=== PATIENT | female | born 1980 | race Two or more races ===

== ENCOUNTER 2020-09-26 13:33 | Emergency (ER) | payer OTHER ==
[~2020-09-26] VITALS: Ht 154.9 cm; Wt 70.3 kg
== END 2020-09-26 19:00 | disposition home or self-care (01) ==
LOC: ER 13:33
DX: R00.2 Palpitations (principal); I10 Essential (primary) hypertension

== ENCOUNTER 2021-08-10 20:55 | Emergency (ER) | payer OTHER ==
[~2021-08-10] VITALS: Ht 152.4 cm; Wt 61.7 kg
== END 2021-08-11 10:30 | disposition home or self-care (01) ==
LOC: ER 20:55
DX: E87.6 Hypokalemia (principal); R11.11 Vomiting without nausea; R10.9 Unspecified abdominal pain

== ENCOUNTER 2022-10-19 07:49 | Emergency (ER) | payer OTHER ==
[~2022-10-19] VITALS: Ht 154.9 cm; Wt 67.1 kg
[2022-10-19] MEDS ORDERED: ZESTRIL10 M1 PO (08:07)
[2022-10-19] MEDS ORDERED: TOPROL XL25 M1 PO (08:07)
== END 2022-10-19 13:28 ==
LOC: ER 07:49
DX: M54.50 Low back pain, unspecified (principal)

== ENCOUNTER 2024-12-13 04:13 | Emergency (ER) | payer OTHER ==
[~2024-12-13] VITALS: Ht 154.9 cm; Wt 61.2 kg
[~2024-12-13 04:13] MED LIST: TOPROL XL25 M1 PO; ZESTRIL10 M1 PO
[2024-12-13] MEDS ORDERED: GUAIFENESIN 200 MG/10 ML BLIST.PACK PO STA (07:15)
[2024-12-13] MEDS ORDERED: ALBUTEROL SULFATE 3 ML/2.5 MG AMPUL.NEB IH SCH (07:15)
[2024-12-13] MEDS ORDERED: GUAIFENESIN 200 MG/10 ML BLIST.PACK PO ONE (07:40)
[2024-12-13 08:54] LABS: HEMATOCRIT 39.3 % (36.0-45.00); HEMOGLOBIN 13.2 g/dL (12.0-15.00); MEAN CELL VOLUME 91.5 fL (80.00-100.00); MEAN CORPUSCULAR HEMOGLOBIN 30.7 pg (27.00-32.0); MEAN CORPUSCULAR HGB CONC 33.5 g/dl (32.0-36.0); PLATELET COUNT 272 K/uL (150-450); RED BLOOD COUNT 4.29 M/uL (4.00-6.00); RED CELL DISTRIBUTION WIDTH 13.2 % (11.5-14.5)
[2024-12-13] MEDS ORDERED: SINGULAIR10 MG PO (10:28)
[2024-12-13] MEDS ORDERED: PEPCID AC20 MG PO (10:28)
[2024-12-13] MEDS ORDERED: MEDROLPACK PO (10:28)
[2024-12-13] MEDS ORDERED: ZITHROMAX500 MG PO (10:28)
[2024-12-13] MEDS ORDERED: LEVALBUTER0.63 MG/3 IH (10:28)
== END 2024-12-13 10:36 | disposition home or self-care (01) ==
LOC: ER 04:16
PROVIDERS: General Practice
DX: R06.02 Shortness of breath (principal); Z20.822 Contact with and (suspected) exposure to COVID-19; I10 Essential (primary) hypertension; Z88.6 Allergy status to analgesic agent

== ENCOUNTER 2025-02-24 17:47 | Emergency (ER) | payer OTHER ==
[~2025-02-24] VITALS: Ht 154.9 cm; Wt 65.8 kg
[~2025-02-24 17:47] MED LIST changes: +LEVALBUTER0.63 MG/3 IH; +MEDROLPACK PO; +PEPCID AC20 MG PO; +SINGULAIR10 MG PO; +ZITHROMAX500 MG PO
[2025-02-24] MEDS ORDERED: BACLOFEN10 MG PO (19:41)
[2025-02-24] MEDS ORDERED: 8 HOUR650 MG PO (19:41)
[2025-02-24] MEDS ORDERED: ORPHENADRINE CITRATE 30 MG/ML AMPUL IM ONE (19:45)
[2025-02-24] MEDS ORDERED: DEXAMETHASONE SODIUM PHOSPHATE 4 MG/ML VIAL IM ONE (19:45)
[2025-02-24] MEDS ORDERED: DEXAMETHASONE SODIUM PHOSPHATE 4 MG/ML VIAL ONE (19:58)
[2025-02-24] MEDS ORDERED: ORPHENADRINE CITRATE 30 MG/ML AMPUL ONE (19:58)
== END 2025-02-24 20:12 | disposition home or self-care (01) ==
LOC: ER 17:48
DX: M54.50 Low back pain, unspecified (principal); Z88.6 Allergy status to analgesic agent; I10 Essential (primary) hypertension